=== PATIENT | male | born 1950 | race Caucasian/White ===

== ENCOUNTER → 2016-04-26 | Outpatient (CLI) | payer SELFPAY | LOC: M ONCR 09:07 | PROVIDERS: ATTEND Radiology Radiation Oncology | DX: C61 Malignant neoplasm of prostate (principal) ==

== ENCOUNTER → 2016-05-31 | Outpatient (CLI) | payer SELFPAY ==
--- NOTE | 2016-06-01 10:58 | RADONC ---
RADIATION ONCOLOGY FOLLOWUP NOTE DATE: 05/31/2016 CHART NUMBER: [id number] DIAGNOSIS: Prostate cancer. STAGE: IIB, [id number] ECOG PERFORMANCE STATUS: 0 FOLLOWUP NOTE: Mr. Dudley is a very pleasant, 65-year-old white male with the diagnosis of a stage IIB, [id number], moderate to poorly differentiated Shan score 7 (4-3) adenocarcinoma of prostate who presented to us initially on 04/26/2016 for discussion of postoperative radiation therapy in attempt to increase the likelihood of achieving local control and cure. At that time, the patient was hesitant to start radiation and wished to undergo observation. He is being followed by his neurologist as well and a PSA was done on 05/22/2016, which continues to be less than 0.1. This has been stable and consistent with his previous PSAs. In light of the fact that his PSA has not increased and continues at the same laboratory being less than 0.01, the patient is presenting today saying he would be hesitant to consider radiation at this point. He wishes to continue to be followed. REVIEW OF SYSTEMS: The patient's review of systems is noncontributory. Denies nausea, vomiting, fevers, chills, night sweats, diplopia, headaches, anxiety or depression, anorexia, weight loss, visual disturbances, chest pain, urinary or bowel difficulties, bone pain, or neurological problems. PHYSICAL EXAMINATION: The patient is a well-developed, well-nourished male in no acute distress. HEENT exam is normocephalic, atraumatic. Extraocular movements are intact. There is no palpable cervical, supraclavicular, infraclavicular, axillary, or inguinal lymphadenopathy present. Lungs are clear to auscultation and percussion. Heart has a regular rate and rhythm. Abdomen is benign with no hepatosplenomegaly, masses, or tenderness. Rectal examination reveals a normal anal sphincter tone. His prostate bed is smooth with no evidence of nodularity. Skeletal examination reveals no tenderness to pressure or percussion of the bony skeleton. Extremities reveal no clubbing, cyanosis, or edema. Neurologic exam is grossly intact, as is the remainder of the physical examination. ASSESSMENT: I have discussed with the patient once again that he has had perineural invasion and a positive margin. I also noted that he rather young and that this tumor is tending to be on the aggressive side with a Shan 7. Of course, this is his choice, but I think the general recommendation would be for postoperative radiation. The patient wishes, however to undergo observation and we will continue to monitor him closely. I have therefore scheduled the patient for a followup in our office in 6 months' time. He is scheduled to see his urologist and have a repeat PSA in 3 months' time as well. The patient and his appear to be quite compliant and intelligent. I have no doubts that they will continue to followup on this. Once again, in summary, the recommendation at this point was to consider postoperative radiation therapy. The patient has declined this. We will therefore follow him closely, as will his urologist. cc: *Dr. Laazro Tavera Jr. *Dr. Kevan Villagran *Darrell Thompson,
== END ==
LOC: M ONCR 09:15
PROVIDERS: ATTEND Radiology Radiation Oncology
DX: C61 Malignant neoplasm of prostate (principal)